=== PATIENT | female | born 1985 | race Caucasian/White ===

== ENCOUNTER 2020-10-19 18:22 | Emergency (ER) | payer OTHER ==
[~2020-10-19] VITALS: Ht 162.6 cm; Wt 125.5 kg
[2020-10-19 18:28] VITALS: Ht 162.6 cm; Wt 125.5 kg
[2020-10-19] MEDS ORDERED: VALTREX500 MG PO (18:30)
[2020-10-19] MEDS ORDERED: CELEXA10 MG PO (18:30)
[2020-10-19] MEDS ORDERED: ZYRTEC10 MG PO (19:32)
[2020-10-19] MEDS ORDERED: ALBUTEROL SULF8.5 GM INH (19:32)
[2020-10-19] MEDS ORDERED: BROMFED-DM COU473 ML PO (19:32)
[2020-10-19] MEDS ORDERED: MEDROL DOSE PACK4 MG PO (19:32)
[2020-10-19] MEDS ORDERED: AUGMENTIN 875-11 TAB PO (19:32)
[2020-10-19 20:18] VITALS: BP 118/84
== END 2020-10-19 20:19 | disposition home or self-care (01) ==
LOC: D.ER 18:22
DX: J32.9 Chronic sinusitis, unspecified (principal); J40 Bronchitis, not specified as acute or chronic; Z72.0 Tobacco use; R51.9 Headache, unspecified